=== PATIENT | female | born 1975 | race Caucasian/White ===

== ENCOUNTER 2022-01-19 08:14 | Day surgery (SDC) | payer MEDICAID, SELFPAY ==
--- NOTE | 2022-01-16 08:26 | PCM.HP.BLA ---
History and Physical Date of Admission: 01/19/22 Pre-Op History and Physical ? HPI: The patient is a 46 year old female presenting for pre-operative visit. Saw dr. Escobar for spotting and pelvic pain. ? She is scheduled for Hysteroscopy D&C and polypectomy with symphion, for AUB, endometrial polyps on 01/19/22. Procedure discussed along with risks, benefits and complications. Other alternatives discussed for management. Consent form signed? Yes. ? ? PAST MEDICAL HISTORY PAST MEDICAL HISTORY Diagnosis Date ? NEGATIVE MEDICAL HISTORY ? ? ? PAST SURGICAL HISTORY PAST SURGICAL HISTORY Procedure Laterality Date ? DELIVERY ONLY ? 06/07/03 ? , low cervical ? DELIVERY ONLY ? 08/24/2004 ? , low cervical ? DELIVERY ONLY ? 12/22 ? , low cervical ? TONSILLECTOMY PRIMARY/SECONDARY <AGE 14 ? ? ? Tonsillectomy ? ? ? CURRENT MEDICATIONS Current Outpatient Medications Medication Sig Dispense Refill ? MULTIVITAMIN ORAL Take by mouth. ? ? ? No current facility-administered medications for this visit. ? ? ALLERGIES: Patient has no known allergies. ? PERSONAL HISTORY: SOCIAL HISTORY Social History ? Tobacco Use ? Smoking status: Never ? Smokeless tobacco: Never Vaping Use ? Vaping Use: Never used Substance Use Topics ? Alcohol use: Yes ? ? Alcohol/week: 2.5 standard drinks ? ? Types: 1 Glasses of Wine (5oz) per week ? ? Comment: Occasional ? Drug use: No ? FAMILY HISTORY: FAMILY HISTORY FAMILY HISTORY Problem Relation Age of Onset ? Thyroid Mother ? ? hypothyroid ? Hypertension Mother ? ? Breast Cancer Mother ? ? 2019; surgery in 2019 ? Thyroid Sister ? ? hypothyroid ? other (Endometriosis) Sister ? ? Diabetes Maternal Grandmother ? ? type 1 ? None Maternal Grandfather ? ? other (Bladder cancer) Maternal Grandfather ? ? Cancer Paternal Grandmother ? ? pancreatic ? Prostate Cancer Paternal Grandfather ? ? Alcohol/Drug Maternal Uncle ? ? and Hep C, ? Breast Cancer Paternal Aunt ? ? Breast Cancer Paternal Aunt ? ? Breast Cancer Other ? ? greatgreat grandfather, 2 paternal aunts ? ? REVIEW OF SYMPTOMS: negative except as noted above PHYSICAL EXAMINATION: ? VITALS: Blood pressure 110/64, height 5' 6.5 (1.689 m), weight 125 lb (56.7 kg), last menstrual period 01/10/2022. ? GENERAL: The patient is well nourished, well hydrated in no acute distress. , The patient is oriented to time, place, and person. NECK: full range of motion LUNGS: Clear to auscultation bilaterally. no wheezes, rhonchi or rales HEART: Regular rate and rhythm, ? Indication Pelvic pain, Abnormal uterine bleeding Impression Normal appearing anteverted uterus that measures 93 mm x 50 mm x 51 mm. The central endometrium complex measures 9.1 mm in combined thickness. There appear to be two areas in the fundal aspect of the endometrium that are heterogeneous and ?demonstrate blood flow that could represent a polyp but other pathology can't be ruled out. Both ovaries are visualized and appear normal. No adnexal masses were observed. There is no free fluid visualized in the peritoneal cavity. Technique: Three dimensional imaging was created on a dedicated stand-alone 3D workstation with images created and archived, and supervised and reviewed by the interpreting physician utilizing images from a US Scan performed on 01/03/22 ?Duplex scan was performed using B-Mode/romo scale imaging and Doppler spectral analysis and color flow.? Recommendations consider hysteroscopic evaluation of the endometrial lesions ? IMPRESSION: AUB, endometrial polyps ? PLAN: Hysteroscopy, D&C, polypectomy with symphion ? Pt has been counseled on risks/benefits and alternatives of surgery including but not limited to anesthesia, bleeding, infection, uterine perforation with subsequent injury to pelvic structures including bowel, bladder, ureters and vessels. Pt wishes to proceed with surgery at this time. ? ? I have reviewed and updated past medical and surgical history, medications and allergies Albania Gonzalez MD Office Visit on 01/15/2022 Office Visit on 01/15/2022 Note viewed by patient
[2022-01-19] VITALS (7 sets, daily range): BP systolic 96–127; BP diastolic 60–81; PULSE 60–79; RESP 16; TEMP 36.2–36.9; O2SAT 100; BMI 20.3
[2022-01-19 08:52] LABS: Hematocrit 39.7 % (37-47); Hemoglobin 13.9 g/dL (12.0-15.0); Mean Corpuscular Hgb 33.4 pg (27.0-32.0); Mean Corpuscular Volume 95.4 fL (81-99); Mean Platelet Vol. 9.9 fl (6.2-12.0); Platelet Count 219 K/mm3 (150-450); RBC Distribution Width CV 12.6 % (11.6-14.6); RBC Distribution Width SD 43.7 fl (35.1-43.9); Red Blood Count 4.16 M/mm3 (4.2-5.4); White Blood Count 5.8 K/mm3 (4.4-11.0)
[2022-01-19] MEDS: Lactated Ringers 1,000 ML 15 ML IV (08:53)
[2022-01-19 08:56] LABS: Internal QC Validated? YES +Cl - CLEAR BKGD; Pregnancy, Urine Negative Negative
--- NOTE | 2022-01-19 09:44 | DCINST_ITS ---
Discharge Instructions Procedure D&C Diet Discharge Diet: No restrictions Activity May resume sexual activity in: 1 week Dressing / Incision Call your doctor if you observe: Fever of 101 or Higher, Inability to urinate, Using more than 1 pad per hour and Uncontrolled pain Follow Up Care Please Follow Up With: Albania Castillo MD When: 1-2 weeks post OP if you need an appointment please call [phone] Test Results: Test results from this visit will be discussed in further detail at your follow- up appointment, if applicable. Discharge Plan Admission Attending Provider: Albania Castillo Primary Care Provider: Care Physician,Felicitas Primary Discharge Orders/Prescriptions Prescriptions: No Action multivitamin Tablet 1 tab PO DAILY Referrals / Follow Up: Care Physician,No Primary [Primary Care Provider] - Disposition Disposition (needs filled in before D/C Order can be placed): Home, Self Care
--- NOTE | 2022-01-19 09:44 | PCM.OPRPT ---
Report of Operation Date of Procedure: 01/19/22 Pre-Operative Diagnosis: AUB, endometrial polyp Post-Operative Diagnosis: same Surgery/Procedure Performed:: Hysteroscopy, D&C, polypectomy Description of Surgical Findings:: Endometrial polyp appreciated. both tubal ostia visualized. Surgeon: Albania Castillo multimedia services manager: None (MS3 Donis Lobo ) Type of Anesthesia: MAC Specimen's removed: Endometrial curettings, endometrial polyp Drains: none Estimated Blood Loss (mL): <5cc Fluids Replaced: 400 Description of Procedure: Informed consent was obtained the patient was taken the operating room she was placed in supine position. She was given anesthesia. She was then placed in the [facility] where she was prepped and draped in the normal sterile fashion. Bladder drained. At this time the weighted speculum was placed in the posterior fornix of vagina. Single-tooth tenaculum was used to gently grasp the anterior lip the cervix. At this time the uterine cavity was sounded to approximately 9 cm. Gentle dilatation was performed once adequate dilatation of the cervix was achieved the hysteroscope using normal saline as a distention medium was placed. Tubal ostia visualized. endometrial polyp noted arising from right lateral aspect. Symphion resecting device used to obtain endometrial curettings and to perform polypectomy. Tissue will be sent to pathology for evaluation. Tenaculum removed. Good hemostasis. Instrument, lap count correct x 2. fluid deficit 400cc Vaginal Sweep was negative. Grafts/Implants Used: none Procedure Start Time: 09:33 Procedure Stop Time: 09:43 Complications none Admit VTE Documentation VTE Present on Admission: Yes VTE Mechan Device Prophylaxis: SCD's VTE Pharm Prophylaxis ordered?: No Reason prophylaxis not ordered:: Procedure Not Indicated
--- NOTE | 2022-01-19 09:50 | EMB_PTH ---
PATIENT: MAYNOR TSANG LOC: [facility] [place] U#:[id number] AGE/SX: 46/F ROOM: RE01/19/[address]: Dr. Albania Castillo, MDDOB: 1975 BED: DIS: 01/19/2022 SPEC #: [id number] RECD: 01/19/22 11:38 STATUS: TOMA ROSSI #: [id number] MARTHA: 01/19/22 09:[address]: Albania Castillo DEPT: SURGICAL PATHOLOGY RECD BY: Mar Cobian ENTERED: 01/19/22 12:46 SP TYPE: ENDOM BX/C JANENE DR: No Primary Care Phys Tissues: Endometrium, NOS Procedures: Surgery Specimen Level IV HEADER OPERATION: Hysteroscopy, D & C Symphion, polypectomy PRE-OP DIAGNOSIS: Abnormal uterine bleeding, endometrial polyps TISSUE SUBMITTED: Endometrial polyp, endometrial curettings MICROSCOPIC DIAGNOSIS Endometrial curettings and polyp: Polypoid fragments of disordered proliferative endometrium. AM:elizabeth 01/22/2022 MICROSCOPIC DESCRIPTION Slides are reviewed. GROSS DESCRIPTION Received in fixative is one container labeled with the patient's name and designated endometrial polyp and curettings. The specimen consists of multiple irregular fragments of pink-raymundo soft tissue that in aggregate measure 2.2 x 2 x 0.2 cm. The specimen is totally submitted in one cassette. / AM:elizabeth 01/19/2022 TC:5 CPT: 30159
== END 2022-01-19 10:44 | disposition home or self-care (01) ==
LOC: SDC 08:17 → AC 08:21
PROVIDERS: Referring Provider Obstetrics & Gynecology; Visit Provider Obstetrics & Gynecology
PROC: 0UB98ZZ Excision of Uterus, Via Natural or Artificial Opening Endoscopic (ICD-10-PCS; CPT 58558; principal; 2022-01-19 09:35)
DX: N93.9 Abnormal uterine and vaginal bleeding, unspecified (principal); N84.0 Polyp of corpus uteri
CPT/HCPCS: 58558; 00952; 81025; 85027; 88305; J7120; J2405